=== PATIENT | female | born 1960 | race Caucasian/White ===

== ENCOUNTER 2016-07-21 20:30 | Emergency (ER) | payer BC ==
[~2016-07-21] VITALS: Ht 167.6 cm; Wt 65.5 kg
[~2016-07-21 20:30] MED LIST: ESTRACE 1MG1 MG/TAB PO; SYNTHROID0.05 MG/TA PO
[2016-07-21 20:33] VITALS: TEMP 99.1
[2016-07-21 21:25] VITALS: BP 140/82; PULSE 90
== END 2016-07-21 21:26 | disposition home or self-care (01) ==
LOC: COL.ER 20:30
DX: R33.9 Retention of urine, unspecified (principal)
CPT/HCPCS: A4315

== ENCOUNTER → 2016-08-10 | Outpatient (CLI) | payer BC | LOC: MC.RAD 08-07 08:00 | DX: Z12.31 Encounter for screening mammogram for malignant neoplasm of breast (principal) ==

== ENCOUNTER → 2017-10-25 | Outpatient (CLI) | payer BC | LOC: MC.RAD 08:52 | DX: N60.02 Solitary cyst of left breast (principal); N60.01 Solitary cyst of right breast ==

== ENCOUNTER → 2018-08-01 | Outpatient (CLI) | payer BC | LOC: MC.RAD 13:00 | DX: N60.02 Solitary cyst of left breast (principal); N60.01 Solitary cyst of right breast | CPT/HCPCS: G0279 ==

== ENCOUNTER 2019-09-29 12:53 | Emergency (ER) | payer BC ==
[~2019-09-29] VITALS: Ht 167.6 cm; Wt 69.1 kg
[2019-09-29 12:56] VITALS: TEMP 97.7
[2019-09-29] MEDS ORDERED: MYRBETR25MG PO (13:18)
[2019-09-29] MEDS ORDERED: MOBIC 7.5MG7.5 MG PO (13:22)
[2019-09-29] MEDS ORDERED: CEPHALEXIN500 M1 PO (14:44)
[2019-09-29 14:45] VITALS: BP 138/72; PULSE 72
== END 2019-09-29 14:45 | disposition home or self-care (01) ==
LOC: COL.ER 12:53
DX: S92.402A Displaced unspecified fracture of left great toe, initial encounter for closed fracture (principal); W23.0XXA Caught, crushed, jammed, or pinched between moving objects, initial encounter; Y92.9 Unspecified place or not applicable

== ENCOUNTER → 2019-10-10 | Outpatient (CLI) | payer BC ==
[~2019-10-10] MED LIST changes: +CEPHALEXIN500 M1 PO; +MOBIC 7.5MG7.5 MG PO; +MYRBETR25MG PO
== END ==
LOC: MC.RAD 13:59
DX: Z12.31 Encounter for screening mammogram for malignant neoplasm of breast (principal)

== ENCOUNTER → 2020-11-25 | Outpatient (CLI) | payer BC | LOC: MC.RAD 10:45 | DX: Z12.31 Encounter for screening mammogram for malignant neoplasm of breast (principal) ==

== ENCOUNTER → 2021-12-09 | Outpatient (CLI) | payer BC | LOC: MC.RAD 11-26 11:15 | DX: Z12.31 Encounter for screening mammogram for malignant neoplasm of breast (principal) ==

== ENCOUNTER → 2023-10-12 | Outpatient (CLI) | payer BC | LOC: COL.RAD 08:51 | DX: R22.31 Localized swelling, mass and lump, right upper limb (principal) ==

== ENCOUNTER → 2023-10-12 | Outpatient (CLI) | payer BC | LOC: MC.RAD 12:59 | DX: N60.02 Solitary cyst of left breast (principal) ==